=== PATIENT | male | born 1960 | race Hispanic/Latino ===

== ENCOUNTER 2020-10-31 14:08 | Emergency (ER) | payer SELFPAY ==
[2020-10-31 17:37] LABS: Urine Blood Negative (Negative); Urine Glucose Negative (Negative); Urine Protein Negative (Negative); Urine Specific Gravity 1.025 (1.005-1.030); Urine pH 5.5 (5.0-7.0)
[2020-10-31 17:51] LABS: Urine Bacteria NONE SEEN /HPF (NONE SEEN); Urine RBC NONE SEEN /HPF (NONE SEEN); Urine Urothelial Cells <5 /HPF (NONE SEEN)
[2020-10-31 17:53] LABS: Absolute Lymphocytes (CBC) 1.7 K/uL (0.7-4.9); Hematocrit 40.2 % (39.6-49.0); MPV 8.3 fL (7.6-11.3); RBC Red Blood Cell Count 4.35 M/uL (4.33-5.43)
[2020-10-31 17:56] LABS: Potassium 4.1 mmol/L (3.5-5.1)
--- NOTE | 2020-10-31 19:01 | RAD REPORT ---
EXAM DESCRIPTION: CT - Head Brain Wo Cont - 10/31/2020 6:48 pm CLINICAL HISTORY: WEAKNESS COMPARISON: No comparisons TECHNIQUE: All CT scans are performed using dose optimization technique as appropriate and may inclu de automated exposure control or mA/KV adjustment according to patient size. FINDINGS: No intracranial hemorrhage, hydrocephalus or extra-axial fluid collection.No areas of brai n edema or evidence of midline shift. The paranasal sinuses and mastoids are clear. The calvarium is intact. IMPRESSION: No acute intracranial abnormality.
--- NOTE | 2020-10-31 19:08 | RAD REPORT ---
EXAM DESCRIPTION: CT - Spine Lumbar Wo Con - 10/31/2020 6:47 pm CLINICAL HISTORY: Radiculopathy. PAIN COMPARISON: No comparisons TECHNIQUE: Axial noncontrast CT imaging of the lumbar spine was performed with coronal and sagittal re-formatted images. All CT scans are performed using dose optimization technique as appropriate and may include automated exposure control or mA/KV adjustment according to patient size. FINDINGS: No acute lumbar spine fracture seen. No aggressive marrow pattern or malalignment. Trace a nterolisthesis of L4 on L5. Paraspinal tissues are normal in thickness. No paraspinal abscess or hematoma seen. Intervertebral disc disease assessment is inherently limited by CT. There are several broad-based dis c bulge as well as ligamentum flavum and facet hypertrophy which is notable at the L3-4, L4-5, and L5 -S1 levels. This results in at least moderate central spinal stenosis. This is most advanced at L4-5. IMPRESSION: No acute fracture of the lumbar spine. Degenerative disc disease with probably moderate central spinal stenosis though MRI is better for evaluation.
--- NOTE | 2020-10-31 19:53 | ER ---
Nurse's Notes [facility] Name: Jhonny Hart Age: 60 yrs Sex: Male : 1960 Arrival Date: 10/31/2020 Time: 14:11 Bed 12 Private MD: Diagnosis: Intervertebral disc disorders with radiculopathy, lumbosacral region Presentation: 10/31 14:41 Chief complaint: Patient states: "I've been toughing it out, but my boss thinks it may ss be a pinched nerve, but I thought I would get better on my own." Pt c/o pain to R buttocks and radiates down R leg x 1 month. Coronavirus screen: Client denies travel out of the [place] in the last 14 days. Ebola Screen: Patient denies exposure to infectious person. Patient denies travel to an Ebola-affected area in the 21 days before illness onset. Initial Sepsis Screen: Does the patient meet any 2 criteria? No. Patient's initial sepsis screen is negative. Does the patient have a suspected source of infection? No. Patient's initial sepsis screen is negative. Risk Assessment: Do you want to hurt yourself or someone else? Patient reports no desire to harm self or others. Onset of symptoms was September 2020. 14:41 Method Of Arrival: Ambulatory ss 14:41 Acuity: PARVIN 4 ss Historical: - Allergies: 14:43 No Known Allergies; ss - Home Meds: 14:43 None [Active]; ss - PMHx: 14:43 None; ss - Immunization history:: Client reports having NOT received the Covid vaccine. - Social history:: Smoking status: Patient reports the use of cigarette tobacco products, smokes one-half pack cigarettes per day. Screenin:59 Abuse screen: Denies threats or abuse. Nutritional screening: No deficits noted. vg1 Tuberculosis screening: No symptoms or risk factors identified. Fall Risk No fall in past 12 months (0 pts). No secondary diagnosis (0 pts). No IV (0 pts). Ambulatory Aid- None/Bed Rest/Nurse Assist (0 pts). Gait- Impaired (20 pts.). Mental Status- Oriented to own ability (0 pts). Total Suh Fall Scale indicates No Risk (0-24 pts). Assessment: 16:55 General: Appears in no apparent distress. comfortable, Behavior is calm, cooperative. vg1 Pain: Complains of pain in right leg and left leg and right hamstring and right gluteal fold and left hamstring and left gluteal fold Pain currently is 10 out of 10 on a pain scale. Quality of pain is described as crampy, Pain began about a month ago. Neuro: Level of Consciousness is awake, alert, obeys commands, Oriented to person, place, time, situation. Cardiovascular: Patient's skin is warm and dry. Respiratory: Airway is patent Respiratory effort is even, unlabored. GI: No signs and/or symptoms were reported involving the gastrointestinal system. : No signs and/or symptoms were reported regarding the genitourinary system. EENT: No signs and/or symptoms were reported regarding the EENT system. Derm: Skin is intact, is healthy with good turgor. Musculoskeletal: Circulation, motion, and sensation intact. 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 Stated 'not too sure if that has anything to do with why my legs feel the way they do'. 18:11 Reassessment: Patient appears in no apparent distress at this time. No changes from vg1 previously documented assessment. Patient and/or family updated on plan of care and expected duration. Pain level reassessed. Patient is alert, oriented x 3, equal unlabored respirations, skin warm/dry/pink. 19:25 Reassessment: Patient appears in no apparent distress at this time. Patient and/or vg1 family updated on plan of care and expected duration. Pain level reassessed. Patient is alert, oriented x 3, equal unlabored respirations, skin warm/dry/pink. Vital Signs: 14:41 BP 111 / 75; Pulse 80; Resp 18; Temp 98.5(TE); Pulse Ox 98% on R/A; Weight 58.97 kg; ss Height 5 ft. 10 in. (177.80 cm); Pain 10/10; 16:58 BP 114 / 76; Pulse 60; Resp 16; Pulse Ox 99% ; vg1 18:11 BP 115 / 60; Pulse 60; Resp 14; Pulse Ox 100% ; vg1 19:25 BP 115 / 70; Pulse 62; Resp 14; Pulse Ox 100% ; vg1 14:41 Body Mass Index 18.65 (58.97 kg, 177.80 cm) ED Course: 14:11 Patient arrived in ED. ds1 14:43 Triage completed. ss 14:43 Arm band placed on right wrist. ss 16:46 Aniyah Hart, RN is Primary Nurse. vg1 16:46 Tanner Abbott PA is PHCP. cp 16:46 Mateo Beckett MD is Attending Physician. cp 16:59 Patient has correct armband on for positive identification. Bed in low position. Call vg1 light in reach. Side rails up X 1. 17:39 Urine Microscopic Only Sent. mh5 17:39 CBC with Diff Sent. 5 17:39 BMP Sent. 5 17:39 Initial lab(s) drawn, by ms, sent to lab. Urine collected: clean catch specimen, clear. mh5 Inserted saline lock: 20 gauge in right antecubital area, using aseptic technique. Blood collected. 18:47 CT Lumbar Spine Wo Con In Process Unspecified. EDMS 18:47 CT Head Brain wo Cont In Process Unspecified. EDMS 19:49 Benedict Oneal MD is Referral Physician. cp 20:18 No provider procedures requiring assistance completed. IV discontinued, intact, vg1 bleeding controlled, No redness/swelling at site. Pressure dressing applied. Administered Medications: No medications were administered Outcome: 19:52 Discharge ordered by MD. cp 20:18 Discharged to home ambulatory, with family. vg1 20:18 Condition: stable 20:18 Discharge instructions given to patient, Instructed on discharge instructions, follow up and referral plans. medication usage, Demonstrated understanding of instructions, follow-up care, medications, Prescriptions given X 3. 20:19 Patient left the ED. vg1 Signatures: Dispatcher [employer] [facility] Linda Gray ds1 Leanna Limon RN RN Tanner Abbott PA PA cp [place], [facility] Aniyah Hart, RN RN vg1
--- NOTE | 2020-10-31 19:53 | EDPHYS ---
Physician Documentation [facility] Name: Jhonny Hart Age: 60 yrs Sex: Male : 1960 Arrival Date: 10/31/2020 Time: 14:11 Bed 12 Private MD: ED Physician Mateo Beckett HPI: 10/31 16:50 This 60 yrs old Male presents to ER via Ambulatory with complaints of Leg Pain cp - Numbness in Leg. 16:50 The patient presents with pain, that is acute. The complaints affect the left gluteal cp fold and left hamstring, right gluteal fold and right hamstring. Context: resulted from an unknown cause. 16:50 Onset: The symptoms/episode began/occurred 1 month(s) ago. cp 16:50 Associated signs and symptoms: Pertinent positives: intermittent numbness and weakness cp of legs, Pertinent negatives saddle anesthesia, bowel and /or bladder incontinence. Patient denies injury. C/o increasing pain to buttocks and intermittent numbness that extends down legs times 1 month. Patient denies injury. Patient denies lower back pain. Historical: - Allergies: 14:43 No Known Allergies; ss - Home Meds: 14:43 None [Active]; ss - PMHx: 14:43 None; ss - Immunization history:: Client reports having NOT received the Covid vaccine. - Social history:: Smoking status: Patient reports the use of cigarette tobacco products, smokes one-half pack cigarettes per day. ROS: 17:00 Constitutional: Negative for body aches, chills, fever, poor PO intake. cp 17:00 Eyes: Negative for injury, pain, redness, and discharge. cp 17:00 Cardiovascular: Negative for chest pain, edema, palpitations. 17:00 Respiratory: Negative for cough, shortness of breath, wheezing. 17:00 Abdomen/GI: Negative for abdominal pain, nausea, vomiting, and diarrhea, constipation, bowel incontinence. 17:00 Back: Negative for pain at rest, pain with movement. 17:00 : Negative for urinary symptoms, bladder incontinence, testicular pain 17:00 Neuro: Positive for weakness, of the right leg and left leg, pain, Negative for saddle anesthesia. 17:00 All other systems are negative. Exam: 17:10 Head/Face: Normocephalic, atraumatic. cp 17:10 Constitutional: The patient appears in no acute distress, alert, awake, non-toxic, well developed, well nourished. 17:10 Eyes: Periorbital structures: appear normal, Conjunctiva: normal, no exudate, no cp injection, Sclera: no appreciated abnormality, Lids and lashes: appear normal, bilaterally. 17:10 ENT: External ear(s): are unremarkable, Nose: is normal, Mouth: Lips: moist, Oral cp mucosa: moist, Posterior pharynx: Airway: no evidence of obstruction, patent. 17:10 Chest/axilla: Inspection: normal, Palpation: is normal, no crepitus, no tenderness. 17:10 Cardiovascular: Rate: normal, Rhythm: regular, Edema: is not appreciated, JVD: is not appreciated. 17:10 Respiratory: the patient does not display signs of respiratory distress, Respirations: normal, no use of accessory muscles, no retractions. 17:10 Abdomen/GI: Inspection: abdomen appears normal, Palpation: abdomen is soft and non-tender, in all quadrants. 17:10 Back: pain, is absent, ROM is normal, vertebral tenderness, is not appreciated, Straight leg raises: of both lower extremities does not illicit pain. 17:10 : Rectal exam: Rectal tone: normal, Perineal sensation Normal 17:10 Skin: no rash present. 17:10 Neuro: Orientation: to person, place \T\ time. Mentation: is normal, Motor: moves all fours, strength is normal, Sensation: no obvious gross deficits, Gait: is steady, Deep tendon reflexes are 2+ (normal) in the right patellar, right Achilles, left patellar and left Achilles. Vital Signs: 14:41 BP 111 / 75; Pulse 80; Resp 18; Temp 98.5(TE); Pulse Ox 98% on R/A; Weight 58.97 kg; ss Height 5 ft. 10 in. (177.80 cm); Pain 10/10; 16:58 BP 114 / 76; Pulse 60; Resp 16; Pulse Ox 99% ; vg1 18:11 BP 115 / 60; Pulse 60; Resp 14; Pulse Ox 100% ; vg1 19:25 BP 115 / 70; Pulse 62; Resp 14; Pulse Ox 100% ; vg1 14:41 Body Mass Index 18.65 (58.97 kg, 177.80 cm) ss MDM: 17:04 Patient medically screened. cp 18:00 Differential diagnosis: cauda equina, spinal stenosis, sciatica, herniated disc disease.cp 19:52 Data reviewed: vital signs, nurses notes, lab test result(s), radiologic studies, CT cp scan. 19:52 Counseling: I had a detailed discussion with the patient and/or guardian regarding: the cp historical points, exam findings, and any diagnostic results supporting the discharge/admit diagnosis, lab results, radiology results, the need for outpatient follow up, for definitive care, a neurosurgeon. 19:52 Response to treatment: the patient's symptoms have mildly improved after treatment, and cp as a result, I will discharge patient. 19:52 ED course: VSS. Discussed results of labs and radiology studies and need for urgent cp f/u. Will discharge to home. Patient given strict return precautions. 10/31 17:00 Order name: Urine Microscopic Only; Complete Time: 18:04 cp 10/31 17:01 Order name: CBC with Diff; Complete Time: 18:15 cp 10/31 18:15 Interpretation: Normal except: HGB 13.4. cp 10/31 17:00 Order name: CT Lumbar Spine Wo Con; Complete Time: 19:18 cp 10/31 19:19 Interpretation: Report reviewed. cp 10/31 17:00 Order name: CT Head Brain wo Cont; Complete Time: 19:18 cp 10/31 19:21 Interpretation: Report reviewed. cp 10/31 17:01 Order name: BMP; Complete Time: 18:04 cp 10/31 18:04 Interpretation: Normal except: CL 111; GFR 88. cp 10/31 17:37 Order name: Urine Dipstick-Ancillary; Complete Time: 18:04 EDMS 10/31 17:00 Order name: Urine Dipstick-Ancillary (obtain specimen); Complete Time: 17:39 cp Administered Medications: No medications were administered Disposition Summary: 10/31/20 19:52 Discharge Ordered Location: Home cp Problem: new cp Symptoms: have improved cp Condition: Stable cp Diagnosis - Intervertebral disc disorders with radiculopathy, lumbosacral region cp Followup: cp - With: Benedict Oneal MD - When: 2 - 3 days - Reason: Recheck today's complaints Discharge Instructions: - Discharge Summary Sheet cp - Lumbosacral Radiculopathy cp Forms: - Medication Reconciliation Form cp - Thank You Letter cp - Antibiotic Education cp - Prescription Opioid Use cp Prescriptions: - Lidoderm 5 % Topical adhesive patch,medicated - apply 1 patch by TOPICAL route once daily As needed; 1 box; Refills: 0, Product cp Selection Permitted - Cyclobenzaprine 10 mg Oral Tablet - take 1 tablet by ORAL route every 8 hours As needed; 20 tablet; Refills: 0, cp Product Selection Permitted - Medrol (Andrade) 4 mg Oral Tablets, Dose Pack - take 1 tablet by ORAL route as directed - follow package instructions; 1 cp packet; Refills: 0, Product Selection Permitted Signatures: Dispatcher [employer] EDMS Leanna Limon RN RN ss Tanner Abbott PA PA cp Corrections: (The following items were deleted from the chart) 11/01 04:10/31 20:00 Constitutional: The patient appears in no acute distress, alert, awake, cp non-toxic, well developed, well nourished, cp 11/01 04:10/31 20:00 Head/Face: Normocephalic, atraumatic. cp cp
[2020-10-31 20:29] VITALS: TEMP 98.5
[2020-10-31 20:32] VITALS: O2SAT 100
[2020-10-31 20:34] VITALS: BP 115/70
== END 2020-10-31 20:19 | disposition home or self-care (01) ==
LOC: ER 14:08
DX: M51.17 Intervertebral disc disorders with radiculopathy, lumbosacral region (principal); F17.210 Nicotine dependence, cigarettes, uncomplicated
CPT/HCPCS: 36415; 70450; 72131; 80048; 81003; 81015; 85025; 99284